=== PATIENT | female | born 1940 | race Caucasian/White ===

== ENCOUNTER → 2016-09-11 | Outpatient (CLI) | payer MEDICARE, OTHER ==
[~2016-09-11] MED LIST: ALBUTEROL SULFATE 0.083% NEB 2.5 MG/3 ML AMPUL NEB ONE
--- NOTE | 2016-09-15 13:39 | Pulmonary Function Test ---
Pulmonary Function Test Date of Procedure:: 09/11/16 INDICATION:: Dyspnea Referring Provider: Dr. Jacobs Psych Assistant: Afshan Ace STRING LASTER - Report Spirometry: FVC 1.66 L 64% postbronchodilator therapy 1.74 L 67% FEV1 1.10 L 58% postbronchodilator therapy 1.11 L 59% FEV1/FVC % 66 postbronchodilator therapy 64 predicted 81 Lung Volume: Total lung capacity 2.50 L 53% Vital capacity 1.66 L 54% Inspiratory capacity 1.11 L FRC 1.39 L 62% Residual volume 0.84 L 42% RV/TLC % 33 predicted 42 Diffusion Capactity: Diffusion capacity 9.4 41% DLCO/VA 3.48 103% Impression: The study demonstrates a moderate obstructive ventilatory defect with limited response to bronchodilator therapy. A Mild Restrictive Ventilatory Defect is also demonstrated, no hyperinflation or air trapping. There is severe decrease in diffusion capacity.
== END ==
LOC: RT 08:14
PROVIDERS: ATTEND Specialist
DX: J44.9 Chronic obstructive pulmonary disease, unspecified (principal); R06.09 Other forms of dyspnea
CPT/HCPCS: 94729; 94727; 94060; 94640; A9270

== ENCOUNTER → 2017-02-18 | Outpatient (CLI) | payer MEDICARE ==
--- NOTE | 2017-02-18 19:25 | RADIOLOGY REPORT (SQ) ---
EXAM DESCRIPTION: U/S THYROID/SFT TISS HD NECK COMPLETED DATE/TIME: 02/18/2017 5:29 pm REASON FOR STUDY: NONTOXIC SINGLE THYROID NODULE E04.1 NONTOXIC SINGLE THYROID NODULE COMPARISON: None. TECHNIQUE: Dynamic and static spicer-scale images acquired of the thyroid gland. Selected additional c olor/power Doppler images recorded. All images stored to PACS. LIMITATIONS: None. FINDINGS: RIGHT LOBE: Normal size. Homogeneous echotexture. Multiple spongiform nodules noted thro ughout. LEFT LOBE: Normal size. Homogeneous echotexture. Multiple spongiform nodules noted throughout. The largest nodule in either lobe is on the left and measures 7.0 x 5.9 x 5.4 mm. ISTHMUS: Normal size. Homogeneous echotexture. No cystic or solid masses. OTHER: No other significant finding. IMPRESSION: Multiple spongiform nodules noted throughout the thyroid the largest which measures 7 mm in size on the left. TECHNICAL DOCUMENTATION: JOB ID: [id number] [employer]- All Rights Reserved
== END ==
LOC: RAD 16:16
PROVIDERS: ATTEND Physician Assistant
DX: E04.1 Nontoxic single thyroid nodule (principal)
CPT/HCPCS: 76536

== ENCOUNTER 2017-04-06 12:36 | Emergency (ER) | payer MEDICARE ==
--- NOTE | 2017-04-06 12:53 | ER Document Report ---
ED Neck/Back Problem - General Chief Complaint: Low Back Pain Stated Complaint: BACK PAIN Time Seen by Provider: 04/06/17 12:44 Notes: The patient is a 76-year-old female, past medical history A. fib, presents with several days of intermittent right lower back pain that is worse when she stands up or moves. She has had this in the past and usually goes away without any intervention. She took some Tylenol with some relief of her symptoms. Patient has a kidney stent and is concerned that her kidneys are infected. She denies dysuria, hematuria, numbness, tingling, change in bowel or bladder, saddle anesthesia, difficulty walking, chest pain, shortness of breath or abdominal pain. TRAVEL OUTSIDE OF THE [place] IN LAST 30 DAYS: No - Related Data Allergies/Adverse Reactions: Iodinated Contrast- Oral and IV Dye [IV Dye, Iodine Containing] Adverse Reaction (Verified 04/06/17 12:49) Past Medical History - General Information source: Patient - Social History Smoking Status: Never Smoker Family History: Reviewed & Not Pertinent - Past Medical History Cardiac Medical History: Reports: Hx Hypercholesterolemia, Hx Hypertension - MEDICATED VARIES WITH DR GIOVANA Denies: Hx Heart Attack Pulmonary Medical History: Reports: Hx COPD Denies: Hx Asthma Neurological Medical History: Denies: Hx Cerebrovascular Accident, Hx Seizures Endocrine Medical History: Reports: Hx Hypothyroidism Renal/ Medical History: Denies: Hx Peritoneal Dialysis GI Medical History: Denies: Hx Hepatitis, Hx Hiatal Hernia, Hx Ulcer Musculoskeltal Medical History: Reports Hx Gout Psychiatric Medical History: Reports: Hx Depression Infectious Medical History: Denies: Hx Hepatitis Past Surgical History: Reports: Hx Hysterectomy. Denies: Hx Mastectomy, Hx Open Heart Surgery, Hx Pacemaker Review of Systems - Review of Systems Notes: REVIEW OF SYSTEMS: CONSTITUTIONAL: -fevers, -chills EENT: -eye pain, -difficulty swallowing, -nasal congestion CARDIOVASCULAR:-chest pain, -syncope. RESPIRATORY: -cough, -SOB GASTROINTESTINAL: -abdominal pain, - nausea, -vomiting, -diarrhea GENITOURINARY: -dysuria, -hematuria MUSCULOSKELETAL: +back pain, -neck pain SKIN: -rash or skin lesions. HEMATOLOGIC: -easy bruising or bleeding. LYMPHATIC: -swollen, enlarged glands. NEUROLOGICAL: -altered mental status or loss of consciousness, -headache, - neurologic symptoms PSYCHIATRIC: -anxiety, -depression. ALL OTHER SYSTEMS REVIEWED AND NEGATIVE. Physical Exam - Vital signs Vitals: Temp Pulse Resp BP Pulse Ox 97.4 F 63 20 149/73 H 93 04/06/17 12:41 04/06/17 12:41 04/06/17 12:41 04/06/17 12:41 04/06/17 12:41 - Notes Notes: PHYSICAL EXAMINATION: GENERAL: Well-appearing, well-nourished and in no acute distress. HEAD: Atraumatic, normocephalic. EYES: Pupils equal round and reactive to light, extraocular movements intact, sclera anicteric, conjunctiva are normal. ENT: nares patent, oropharynx clear without exudates. Moist mucous membranes. NECK: Normal range of motion, supple without lymphadenopathy LUNGS: Breath sounds clear to auscultation bilaterally and equal. No wheezes rales or rhonchi. HEART: Regular rate and rhythm without murmurs ABDOMEN: Soft, nontender, normoactive bowel sounds. No guarding, no rebound. No masses appreciated. EXTREMITIES: Normal range of motion, no pitting or edema. No cyanosis. BACK: No midline tenderness. Mild tenderness of right lower back. No CVA tenderness. NEUROLOGICAL: Cranial nerves grossly intact. Normal speech, normal gait. Normal sensory and motor exams. PSYCH: Normal mood, normal affect. SKIN: Warm, Dry, normal turgor, no rashes or lesions noted. Course - Re-evaluation Re-evalutation: Pt has reproducible right lower back pain that is worse with movement. No red flag signs for low back pain at this time. Considered AAA, but less likely at this time. UA does not show evidence of UTI or pyelonephritis. Instructed her to begin Lidoderm patches and f/u with her PMD. She says that she has CKD Stage 2, so will have her hold off on NSAIDs and ask her PMD if NSAIDs are safe. - Vital Signs Vital signs: Temp Pulse Resp BP Pulse Ox 97.4 F 63 20 149/73 H 93 04/06/17 12:41 04/06/17 12:41 04/06/17 12:41 04/06/17 12:41 04/06/17 12:41 Discharge - Discharge Clinical Impression: Low back pain Qualifiers: Chronicity: chronic Back pain laterality: right Sciatica presence: without sciatica Qualified Code(s): M54.5 - Low back pain; G89.29 - Other chronic pain Condition: Stable Disposition: HOME, SELF-CARE Additional Instructions: LOW BACK PAIN: Three out of every four people will have an episode of disabling back pain during their lifetime. Most commonly the pain is due to straining of the muscles and ligaments in the low back. Usual treatment includes: (1) Rest on a firm surface. Avoid lying on your stomach. (2) Ice pack the painful area. After a few days, gentle heat may be used intermittently to relax the area, or ice packs can be continued. (3) Medication may be needed -- muscle relaxers and antiinflammatory medicines are commonly used. (4) As the back improves, exercises are prescribed to strengthen the back and abdominal muscles. Your doctor will advise you on the proper care for your back at each stage in your recovery. You may be better in a few days -- or healing may take several weeks. If new symptoms of a "herniated disc" (radiation of pain, numbness, or tingling down the back of the leg or weakness in the leg) occur, you should be re-examined. Further testing may be necessary. ICE PACKS: Apply ice packs frequently against the painful area. Many different schedules are recommended, such as "20 minutes on, 20 minutes off" or "one hour ice, two hours rest." If you need to work, you may need to go longer between ice treatments. You should plan to have the area ice packed AT LEAST one fourth of the time. The ice should be applied over the wrap, tape, or splint, or over a layer of cloth -- not directly against the skin. Some ice bags have a built-in cloth and can be put directly on the skin. WARM PACKS: After approximately two days, apply gentle heat (such as a heating pad or hot water bottle) for about 20 to 30 minutes about every two hours -- at least four times daily. Warmth and elevation will help you make a more rapid recovery , and will ease the pain considerably. Do not use HOT heat, and never apply heat for longer than 30 minutes. The continuous heat can invisibly damage skin and muscles -- even when no burn is seen on the surface. Damaged muscles can make you MORE sore. FOLLOW-UP CARE: If you have been referred to a physician for follow-up care, call the physician s office for an appointment as you were instructed or within the next two days. If you experience worsening or a significant change in your symptoms, notify the physician immediately or return to the Emergency Department at any time for re-evaluation. Prescriptions: Lidocaine [Lidoderm 5% (700 mg) Transdermal Patch] 1 patch TP DAILY #30 adh..patch Forms: Elevated Blood Pressure
[2017-04-06 13:21] LABS: APPEARANCE,URINE CLEAR; BILIRUBIN,URINE NEGATIVE (NEGATIVE); GLUCOSE, URINE NEGATIVE (NEGATIVE); KETONES,URINE NEGATIVE (NEGATIVE); LEUKOCYTE ESTERASE,URINE NEGATIVE (NEGATIVE); NITRITE,URINE NEGATIVE (NEGATIVE); PROTEIN,URINE NEGATIVE (NEGATIVE); URINE SPECIFIC GRAVITY 1.003; UROBILINOGEN,URINE NEGATIVE mg/dL (<2.0)
[2017-04-06 13:35] VITALS: BP 146/78
== END 2017-04-06 13:35 | disposition home or self-care (01) ==
LOC: ER 12:36
DX: M54.5 Low back pain (principal); G89.29 Other chronic pain; I12.9 Hypertensive chronic kidney disease with stage 1 through stage 4 chronic kidney disease, or unspecified chronic kidney disease; N18.2 Chronic kidney disease, stage 2 (mild); J44.9 Chronic obstructive pulmonary disease, unspecified; Z91.041 Radiographic dye allergy status
CPT/HCPCS: 81001; 99283

== ENCOUNTER 2017-06-13 17:51 | Emergency (ER) | payer MEDICARE ==
[2017-06-13 18:10] VITALS: BP 127/75
[2017-06-13] MEDS ORDERED: DEXAMETHASONE SOD PHOS INJ 10 MG/1 ML VIAL IM ONE (18:32)
[2017-06-13] MEDS ORDERED: LIDOCAINE 5% (700 MG) TRANSDERMAL ADH..PATCH TP ONE (18:32)
--- NOTE | 2017-06-13 18:39 | ER Document Report ---
HPI - HPI Pain Level: 4 Notes: Patient is a 76-year-old female with a history of gout, CKD, COPD, chronic back pain, who presents the ED complaining of left buttock pain that radiates around the left lateral leg into her knee. Patient states that this pain started over the last day or 2. Patient denies any injury. Patient states that after a warm shower her pain does improve, but returns after using it again. Patient states that she is still able to ambulate, but does limp. Patient has not noticed any bruising or swelling nor any redness. PCM is Dr. Brown. Denies any headache, fever, URI, sore throat, chest pain, palpitations, syncope, cough , shortness of breath, wheeze, dyspnea, abdominal pain, nausea/vomiting/diarrhea , urinary retention, dysuria, hematuria, loss of control of bowel or bladder, numbness/tingling, saddle anesthesia, muscle paralysis/weakness, or rash. Patient denies any history of diabetes, back injections, or surgeries to her lower back. Patient denies any recent bacterial infection. - ROS Notes: REVIEW OF SYSTEMS: CONSTITUTIONAL : Denies fever, chills, or sweats. Denies recent illness. EENT: Denies eye, ear, throat, or mouth pain or symptoms. Denies nasal or sinus congestion or discharge. Denies throat, tongue, or mouth swelling or difficulty swallowing. CARDIOVASCULAR: Denies chest pain. Denies palpitations or racing or irregular heart beat. Denies ankle edema. RESPIRATORY: Denies cough, cold, or chest congestion. Denies shortness of breath, difficulty breathing, or wheezing. GASTROINTESTINAL: Denies abdominal pain or distention. Denies nausea, vomiting , or diarrhea. Denies blood in vomitus, stools, or per rectum. Denies black, tarry stools. Denies constipation. GENITOURINARY: Denies difficulty urinating, painful urination, burning, frequency, blood in urine, or discharge. MUSCULOSKELETAL: see hpi SKIN: Denies rash, lesions or sores. NEUROLOGICAL: Denies confusion or altered mental status. Denies passing out or loss of consciousness. Denies dizziness or lightheadedness. Denies headache. Denies weakness or paralysis or loss of use of either side. Denies problems with gait or speech. Denies sensory loss, numbness, or tingling. ALL OTHER SYSTEMS REVIEWED AND NEGATIVE. Dictation was performed using [employer] voice recognition software - REPRODUCTIVE Reproductive: DENIES: : - DERM Skin Color: Normal Past Medical History - Social History Smoking Status: Never Smoker Family History: Reviewed & Not Pertinent Patient has suicidal ideation: No Patient has homicidal ideation: No - Past Medical History Cardiac Medical History: Reports: Hx Hypercholesterolemia, Hx Hypertension - MEDICATED VARIES WITH DR VISITS Denies: Hx Heart Attack Pulmonary Medical History: Reports: Hx COPD Denies: Hx Asthma Neurological Medical History: Denies: Hx Cerebrovascular Accident, Hx Seizures Endocrine Medical History: Reports: Hx Hypothyroidism Renal/ Medical History: Denies: Hx Peritoneal Dialysis GI Medical History: Denies: Hx Hepatitis, Hx Hiatal Hernia, Hx Ulcer Musculoskeltal Medical History: Reports Hx Gout Psychiatric Medical History: Reports: Hx Depression Infectious Medical History: Denies: Hx Hepatitis Past Surgical History: Reports: Hx Hysterectomy. Denies: Hx Mastectomy, Hx Open Heart Surgery, Hx Pacemaker Vertical Provider Document - CONSTITUTIONAL Agree With Documented VS: Yes Notes: PHYSICAL EXAMINATION: GENERAL: Well-appearing, well-nourished and in no acute distress. LUNGS: Breath sounds clear to auscultation bilaterally and equal. No wheezes rales or rhonchi. HEART: Regular rate and rhythm without murmurs, rubs, gallops. ABDOMEN: Soft, nontender, nondistended abdomen. No guarding, no rebound. No masses appreciated. Normal bowel sounds present. No CVA tenderness bilaterally. No pulsatile mass. Musculoskeletal: LE's b/l: FROM to passive/active. Strength 5+/5. No focal deficits. N/V intact distal. Lt leg: No palpable tenderness to the hip, leg, knee. Ella neg. Pulses intact. No erythema, ecchymosis, warmth, or swelling. No pain or crepitus with ROM at the hip/knee. Back: FROM to passive/active. Strength 5+/5. No vertebral point tenderness or step-offs. No ecchymosis, abrasion, laceration, erythema, warmth, or deformity. + tenderness to the left SI jt (tenderness elicited corresponds to pain described). Extremities: No cyanosis, clubbing, or edema b/l. Peripheral pulses 2+. Capillary refill less than 3 seconds. NEUROLOGICAL: Normal speech, ataxic gait. Normal sensory, motor exams PSYCH: Normal mood, normal affect. SKIN: Warm, Dry, normal turgor, no rashes or lesions noted. - INFECTION CONTROL TRAVEL OUTSIDE OF THE [place] IN LAST 30 DAYS: No - RESPIRATORY O2 Sat by Pulse Oximetry: 97 Course - Re-evaluation Re-evalutation: 06/13/17 18:41 Patient is an afebrile, well-hydrated, 76-year-old female who presents the ED with left sacroiliitis. Vitals are stable. PE is otherwise unremarkable for any focal neurological deficits, neurovascular compromise, obvious tendon/ ligament rupture, obvious fracture or dislocation. No imaging warranted based on H&P today. Patient does have stage III chronic kidney disease so I will avoid NSAIDs at this time. Decadron 10 mg given IM along with a Lidoderm patch being placed. Exercises reviewed. Conservative measures for symptoms otherwise. Recheck with your PCM in 3-5 days. Strongly recommend consult with physical therapy. Consult with orthopedics if needed. Return to the ED with any worsening/concerning symptoms otherwise as reviewed in discharge. Patient is in agreement. - Vital Signs Vital signs: Temp Pulse Resp BP Pulse Ox 98.5 F 65 16 127/75 H 97 06/13/17 18:08 06/13/17 18:08 06/13/17 18:08 06/13/17 18:08 06/13/17 18:08 Discharge - Discharge Clinical Impression: Inflammation of left sacroiliac joint Condition: Stable Disposition: HOME, SELF-CARE Instructions: Ice Massage ([facility]), Ice Packs ([facility]), Warm Packs ([facility]) Additional Instructions: Rest, Ice Tylenol/ibuprofen as needed Light stretches daily Strength exercises as able Moist heat and massage may help F/u with your PCP in 3-5days for a recheck, recommend physical therapy* Consider consult(s) with Orthopedics/physical therapy for ongoing/worsening symptoms Return to the ED with any worsening symptoms and/or development of fever, headache, chest pain, palpitations, syncope, shortness of breath, trouble breathing, abdominal pain, n/v/d, muscle weakness/paralysis, numbness/tingling, swelling, redness, or other worsening symptoms that are concerning to you. Forms: Elevated Blood Pressure Referrals: [facility] [Provider Group] - Follow up as needed ANGELES BROWN MD [ACTIVE STAFF] - Follow up in 3-5 days
== END 2017-06-13 19:01 | disposition home or self-care (01) ==
LOC: ER 17:51
DX: M46.1 Sacroiliitis, not elsewhere classified (principal); J44.9 Chronic obstructive pulmonary disease, unspecified; I12.9 Hypertensive chronic kidney disease with stage 1 through stage 4 chronic kidney disease, or unspecified chronic kidney disease; N18.3 Chronic kidney disease, stage 3 (moderate)
CPT/HCPCS: 99283; 96372; J1100

== ENCOUNTER → 2017-10-06 | Outpatient (CLI) | payer MEDICARE, OTHER ==
--- NOTE | 2017-10-08 12:46 | XCELERA REPORT ---
[address] [address] Transthoracic Echocardiogram Report Name: RANJAN ARMANDO Age: 77 yrs Gender: Female : 1940 Patient Status: Outpatient Patient Location: Study Date: 10/06/2017 11:17 AM Height: 64 in Weight: 216 lb BSA: 2.0 m2 Procedure: A complete two-dimensional transthoracic echocardiogram was performed (2D, M-mode, spectral and color flow Doppler). The study was technically adequate with some images being suboptimal in quality. Reason For Study: AORTIC STENOSIS Ordering Physician: DEANGELO OSWALD Performed By: Neena Dowell Interpretation Summary The left ventricular ejection fraction is normal. Doppler measurements suggest pseudonormalized left ventricular relaxation, which is associated with grade II/IV or mild to moderate diastolic dysfunction There is borderline concentric left ventricular hypertrophy. The left ventricle is grossly normal size. Wall motion cannot be accurately commented on, but no definite regional wall motion abnormalities noted. The right ventricle is mild to moderately dilated. The right atrium is borderline dilated. Borderline left atrial enlargement. There is a mild amount of mitral regurgitation There is no mitral valve stenosis. There is a mild amount of aortic regurgitation There is no aortic valve stenosis No tricuspid regurgitation. There is no tricuspid stenosis. The aortic root is not well visualized but is probably normal size. The inferior vena cava appeared normal and decreased > 50% with respiration (RAP 5-10 mmHg) There is no pericardial effusion. MMode/2D Measurements & Calculations RVDd: 3.2 cm LVIDd: 4.6 cm FS: 29.1 % Ao root diam: 3.1 cm IVSd: 1.1 cm LVIDs: 3.3 cm EDV(Teich): 97.0 ml LVPWd: 1.0 cm ESV(Teich): 42.7 ml Ao root area: 7.8 cm2 EF(Teich): 56.0 % LA dimension: 3.3 cm Doppler Measurements & Calculations MV E max michelle: MV P1/2t max michelle: Ao V2 max: AI max michelle: 133.3 cm/sec 133.3 cm/sec 132.3 cm/sec 411.0 cm/sec MV A max michelle: MV P1/2t: 52.8 msec Ao max PG: AI max P.4 cm/sec 7.0 mmHg 67.6 mmHg MV E/A: 1.1 MVA(P1/2t): 4.2 cm2 AI dec slope: MV dec slope: 739.4 cm/sec2 170.2 cm/sec2 AI P1/2t: 707.1 msec LV V1 max PG: PA V2 max: PI end-d michelle: 1.8 mmHg 73.5 cm/sec 101.8 cm/sec LV V1 max: PA max P.2 mmHg 66.6 cm/sec Left Ventricle The left ventricle is grossly normal size. There is borderline concentric left ventricular hypertrophy. The left ventricular ejection fraction is normal. Doppler measurements suggest pseudonormalized left ventricular relaxation, which is associated with grade II/IV or mild to moderate diastolic dysfunction. Wall motion cannot be accurately commented on, but no definite regional wall motion abnormalities noted. Right Ventricle The right ventricle is mild to moderately dilated. The right ventricular systolic function is normal. Atria The right atrium is borderline dilated. Borderline left atrial enlargement. Interarterial septum not well visualized and not well dopplered. Cannot comment on ASD/PFO presence. Mitral Valve The mitral valve is grossly normal. There is no mitral valve stenosis. There is a mild amount of mitral regurgitation. Aortic Valve The aortic valve opens well. There is no aortic valve stenosis. There is a mild amount of aortic regurgitation. Tricuspid Valve The tricuspid valve is not well visualized, but is grossly normal. There is no tricuspid stenosis. No tricuspid regurgitation. Pulmonic Valve The pulmonic valve is not well visualized. Great Vessels The aortic root is not well visualized but is probably normal size. The inferior vena cava appeared normal and decreased > 50% with respiration (RAP 5-10 mmHg). Effusions There is no pericardial effusion. : DEANGELO OSWALD > Colby Cam
== END ==
LOC: SP 10:23
PROVIDERS: ATTEND Specialist
DX: I35.0 Nonrheumatic aortic (valve) stenosis (principal)
CPT/HCPCS: 93306

== ENCOUNTER → 2018-03-10 | Outpatient (CLI) | payer MEDICARE, OTHER ==
--- NOTE | 2018-03-10 11:54 | RADIOLOGY REPORT (SQ) ---
EXAM DESCRIPTION: U/S THYROID/SFT TISS HD NECK COMPLETED DATE/TIME: 03/10/2018 9:26 am REASON FOR STUDY: THYROID NODULE E04.1 NONTOXIC SINGLE THYROID NODULE COMPARISON: Thyroid ultrasound 02/18/2017 TECHNIQUE: Dynamic and static spicer-scale images acquired of the thyroid gland. Selected additional c olor/power Doppler images recorded. All images stored to PACS. LIMITATIONS: None. FINDINGS: RIGHT LOBE: Right lobe thyroid is 4.3 x 1.7 x 1.6 cm in size. Homogeneous echotexture. M ultiple colloid cysts are present, the largest is 11 mm in diameter in the posterior right midpole gl and. This is similar compared to prior study from 2017. LEFT LOBE: Left lobe thyroid is 4.0 x 1.5 x 1.6 cm in size Homogeneous echotexture. Multiple colloi d cysts are present, the largest is 7 mm in diameter left lobe thyroid. This is similar compared to prior study from 2017. ISTHMUS: Normal thickness, 7 mm. Homogeneous echotexture. Benign colloid cyst 7 mm in diameter, unc hanged. OTHER: No other significant finding. IMPRESSION: Normal size thyroid gland with multiple small colloid cysts, similar compared to exam TECHNICAL DOCUMENTATION: JOB ID: [id number] [employer]- All Rights Reserved Reading location - IP/workstation name: [email or web address]
== END ==
LOC: RAD 08:42
PROVIDERS: ATTEND Physician Assistant
DX: E04.1 Nontoxic single thyroid nodule (principal)
CPT/HCPCS: 76536

== ENCOUNTER → 2018-03-31 | Outpatient (CLI) | payer MEDICARE, OTHER | LOC: RT 09:01 | PROVIDERS: ATTEND Specialist | DX: I35.1 Nonrheumatic aortic (valve) insufficiency (principal); I34.0 Nonrheumatic mitral (valve) insufficiency; I48.0 Paroxysmal atrial fibrillation; I12.9 Hypertensive chronic kidney disease with stage 1 through stage 4 chronic kidney disease, or unspecified chronic kidney disease; N18.3 Chronic kidney disease, stage 3 (moderate); E78.5 Hyperlipidemia, unspecified; E03.9 Hypothyroidism, unspecified; Z79.899 Other long term (current) drug therapy; E66.9 Obesity, unspecified; J44.9 Chronic obstructive pulmonary disease, unspecified | CPT/HCPCS: 94729; 94727; 94060; A9270 ==

== ENCOUNTER 2018-09-25 19:48 | Emergency (ER) | payer MEDICARE, OTHER ==
[2018-09-25] MEDS ORDERED: NORMAL SALINE 1000 ML 1,000 ML IV ONE (20:41)
--- NOTE | 2018-09-25 20:41 | ER Document Report ---
ED Medical Screen (RME) - General Chief Complaint: Abdominal Pain >50 Stated Complaint: UPPER ABDOMINAL PAIN Time Seen by Provider: 09/25/18 20:37 Primary Care Provider: CHRISTINE NGUYEN PA [Primary Care Provider] - Follow up as needed Notes: Patient is a 78-year-old female that presents to the emergency department for chief complaint of nausea, vomiting and epigastric pain. She is also reported having some shortness of breath. ROS: Other than noted above, the 12 point review of systems was reviewed with the patient and were negative, all pertinent findings are included in the HPI. PHYSICAL EXAMINATION: Vital signs reviewed. GENERAL: Elderly female HEAD: Atraumatic, normocephalic. EYES: Pupils equal round extraocular movements intact, conjunctiva are normal. ENT: Nares patent NECK: Normal range of motion CV: Heart regular rate and rhythm LUNGS: No respiratory distress Musculoskeletal: Normal range of motion NEUROLOGICAL: Normal speech PSYCH: Normal mood, normal affect. MDM: Patient seen and examined for rapid initial assessment. Vital signs reviewed. A comprehensive ED assessment and evaluation of the patient, analysis of test results and completion of the medical decision making process will be conducted by additional ED providers. *Note is created using voice recognition software and may contain spelling, syntax or grammatical errors. TRAVEL OUTSIDE OF THE [place] IN LAST 30 DAYS: No - Related Data Allergies/Adverse Reactions: Iodinated Contrast- Oral and IV Dye [IV Dye, Iodine Containing] Adverse Reaction (Verified 06/13/17 18:08) Past Medical History - Past Medical History Cardiac Medical History: Reports: Hx Hypercholesterolemia, Hx Hypertension - MEDICATED VARIES WITH DR GIOVANA Denies: Hx Heart Attack Pulmonary Medical History: Reports: Hx COPD Denies: Hx Asthma Neurological Medical History: Denies: Hx Cerebrovascular Accident, Hx Seizures Endocrine Medical History: Reports: Hx Hypothyroidism Renal/ Medical History: Denies: Hx Peritoneal Dialysis GI Medical History: Denies: Hx Hepatitis, Hx Hiatal Hernia, Hx Ulcer Musculoskeltal Medical History: Reports Hx Gout Psychiatric Medical History: Reports: Hx Depression Infectious Medical History: Denies: Hx Hepatitis Past Surgical History: Reports: Hx Hysterectomy. Denies: Hx Mastectomy, Hx Open Heart Surgery, Hx Pacemaker Physical Exam - Vital signs Vitals: Temp Pulse Resp BP Pulse Ox 99.9 F 95 20 145/65 H 87 L 09/25/18 20:25 09/25/18 20:25 09/25/18 20:25 09/25/18 20:25 09/25/18 20:25 Course - Vital Signs Vital signs: Temp Pulse Resp BP Pulse Ox 99.9 F 95 20 145/65 H 87 L 09/25/18 20:25 09/25/18 20:25 09/25/18 20:25 09/25/18 20:25 09/25/18 20:25 Doctor's Discharge - Discharge Referrals: CHRISTINE NGUYEN PA [Primary Care Provider] - Follow up as needed
[2018-09-25] MEDS ORDERED: ONDANSETRON HCL INJ/PF 4 MG/2 ML SDV IV ONE (20:42)
[2018-09-25] MEDS ORDERED: PANTOPRAZOLE SODIUM 40 MG VIAL IV ONE (20:42)
--- NOTE | 2018-09-25 21:22 | ER Document Report ---
ED General - General Chief Complaint: Abdominal Pain >50 Stated Complaint: UPPER ABDOMINAL PAIN Time Seen by Provider: 09/25/18 20:37 Primary Care Provider: CHRISTINE NGUYEN PA [Primary Care Provider] - Follow up as needed Notes: Patient is an 78-year-old female that comes to the emergency department for chief complaint of nausea, vomiting, and pain in her upper abdomen. Intermittently she has had pain that radiated from the abdomen up into her chest. She states she is also having some vague shortness of breath. She vomited 4 times today. She states that when she eats she lasts about 30 minutes or more and then vomits. She denies diarrhea, flank pain, fever. Past medical history includes COPD, chronic kidney disease, hysterectomy, and a stent in her kidney. She states she has also had reflux intermittently, not treated for this. TRAVEL OUTSIDE OF THE [place] IN LAST 30 DAYS: No - Related Data Allergies/Adverse Reactions: Iodinated Contrast- Oral and IV Dye [IV Dye, Iodine Containing] Adverse Reaction (Verified 06/13/17 18:08) Past Medical History - General Information source: Patient, Relative - Social History Smoking Status: Never Smoker Chew tobacco use (# tins/day): No Frequency of alcohol use: None Drug Abuse: None Lives with: Family Family History: Reviewed & Not Pertinent Patient has suicidal ideation: No Patient has homicidal ideation: No - Past Medical History Cardiac Medical History: Reports: Hx Hypercholesterolemia, Hx Hypertension - MEDICATED VARIES WITH DR GIOVANA Denies: Hx Heart Attack Pulmonary Medical History: Reports: Hx COPD Denies: Hx Asthma Neurological Medical History: Denies: Hx Cerebrovascular Accident, Hx Seizures Endocrine Medical History: Reports: Hx Hypothyroidism Renal/ Medical History: Denies: Hx Peritoneal Dialysis GI Medical History: Denies: Hx Hepatitis, Hx Hiatal Hernia, Hx Ulcer Musculoskeletal Medical History: Reports Hx Gout Psychiatric Medical History: Reports: Hx Depression Infectious Medical History: Denies: Hx Hepatitis Past Surgical History: Reports: Hx Hysterectomy. Denies: Hx Mastectomy, Hx Open Heart Surgery, Hx Pacemaker - Immunizations Immunizations up to date: Yes Hx Diphtheria, Pertussis, Tetanus Vaccination: Yes Review of Systems - Review of Systems Constitutional: No symptoms reported EENT: No symptoms reported Cardiovascular: No symptoms reported Respiratory: No symptoms reported Gastrointestinal: See HPI Genitourinary: No symptoms reported Female Genitourinary: No symptoms reported Musculoskeletal: No symptoms reported Skin: No symptoms reported Hematologic/Lymphatic: No symptoms reported Neurological/Psychological: No symptoms reported Physical Exam - Vital signs Vitals: Temp Pulse Resp BP Pulse Ox 99.9 F 95 20 145/65 H 87 L 09/25/18 20:25 09/25/18 20:25 09/25/18 20:25 09/25/18 20:25 09/25/18 20:25 - Notes Notes: GENERAL: Alert, interacts well. No acute distress. HEAD: Normocephalic, atraumatic. EYES: Pupils equal, round, and reactive to light. Extraocular movements intact. ENT: Oral mucosa moist, tongue midline. Oropharynx unremarkable. Airway patent. Nares patent, no nasal septal hematoma, TM's intact. NECK: Full range of motion. Supple. Trachea midline. LUNGS: Clear to auscultation bilaterally, no wheezes, rales, or rhonchi. No respiratory distress. HEART: Regular rate, normal rhythm, loud systolic murmur heard throughout ABDOMEN: Tender in the epigastric area and mildly in the left upper quadrant, remaining abdomen is benign. No distention or rigidity. GENITOURINARY: Deferred EXTREMITIES: Moves all 4 extremities spontaneously. No edema, normal radial and dorsalis pedis pulses bilaterally. No cyanosis. BACK: no cervical, thoracic, lumbar midline tenderness. No saddle anesthesia, normal distal neurovascular exam. NEUROLOGICAL: Alert and oriented x3. Normal speech. [cranial nerves II through XII grossly intact]. PSYCH: Normal affect, normal mood. SKIN: Warm, dry, normal turgor. No rashes or lesions noted. Course - Re-evaluation Re-evalutation: EKG sinus rhythm at a rate of 101 with no T wave inversions or ST segment changes in consecutive leads. Chest x-ray is unremarkable. On my exam patient is only exhibiting epigastric pain, she does have pain on exam but this is mild, this is mainly in the epigastric area and slightly in the left upper quadrant, right upper quadrant is unremarkable. Lower abdomen is unremarkable. CBC unremarkable, chemistry unremarkable, lipase unremarkable. Cardiac enzymes indeterminate. This was cycled and did not significantly increase. On reeval uation patient states her symptoms are completely gone. She is asking to leave. She has received Protonix and Zofran. I discussed right upper quadrant ultrasound, CAT scan, but patient and daughter declined. Patient was given p.o. medication and fluids, she tolerated this without any difficulties. Symptoms did not return. Based on her location of pain (epigastric), symptoms resolving with Protonix, Zofran, Carafate, clinical picture is most consistent with upper gastrointestinal inflammation. I did discuss this with them in detail, I discussed strict return precautions and close follow-up. They state understanding and agreement. - Vital Signs Vital signs: Temp Pulse Resp BP Pulse Ox 99.5 F 95 15 98/53 L 95 09/26/18 01:38 09/25/18 20:25 09/26/18 01:37 09/26/18 01:38 09/26/18 01:37 - Laboratory Result Diagrams: 09/25/18 21:04 09/25/18 21:04 Laboratory results interpreted by me: 09/25/18 09/25/18 09/26/18 21:04 21:04 00:00 Hgb 15.7 H RDW 14.2 H Seg Neuts % (Manual) 92 H Lymphocytes % (Manual) 4 L Abs Lymphs (Manual) 0.3 L Chloride 97 L BUN 23 H Est GFR ( Amer) 51 L Est GFR (Non-Af Amer) 42 L Glucose 194 H AST 40 H Urine Protein 30 H Discharge - Discharge Clinical Impression: Epigastric pain Vomiting Qualifiers: Vomiting type: unspecified Vomiting Intractability: non-intractable Nausea presence: with nausea Qualified Code(s): R11.2 - Nausea with vomiting, unspecif ied Condition: Stable Disposition: HOME, SELF-CARE Additional Instructions: Your workup at this time has been reassuring. Take the medication ranitidine as prescribed for healing of the inflamed area of your upper gastrointestinal tract. Take Zofran if needed for nausea. Start with bland food, slowly progress. Follow-up within the next several days with your primary care. Return if you worsen including return vomiting, return or severe pain, fever, or any other concerning or worsening symptoms. Prescriptions: Ondansetron [Zofran Odt 4 mg Tablet] 1 - 2 tab PO Q4H PRN #15 tab.rapdis PRN Reason: For Nausea/Vomiting Ranitidine HCl [Zantac 150 mg Tablet] 150 mg PO BID #20 tablet Referrals: CHRISTINE NGUYEN PA [Primary Care Provider] - Follow up as needed
[2018-09-25 21:24] LABS: HEMATOCRIT 45.9 % (36.0-47.0); HEMOGLOBIN 15.7 g/dL (12.0-15.5); MEAN CORPUSCULAR HEMOGLOBIN 31.6 pg (27.0-33.4); MEAN CORPUSCULAR HGB CONC 34.1 g/dL (32.0-36.0); MEAN CORPUSCULAR VOLUME 93 fl (80-97); PLATELET COUNT 157 10^3/uL (150-450); RED BLOOD COUNT 4.96 10^6/uL (3.72-5.28); RED CELL DISTRIBUTION WIDTH 14.2 % (11.5-14.0); WHITE BLOOD COUNT 7.9 10^3/uL (4.0-10.5)
[2018-09-25 21:39] LABS: ALANINE AMINOTRANSFERASE 31 U/L (9-52); ALBUMIN 4.6 g/dL (3.5-5.0); ALKALINE PHOSPHATASE 103 U/L (38-126); ANION GAP 13 (5-19); ASPARTATE AMINO TRANSFERASE 40 U/L (14-36); BILIRUBIN,DIRECT 0.4 mg/dL (0.0-0.4); BILIRUBIN,TOTAL 1.3 mg/dL (0.2-1.3); BLOOD UREA NITROGEN 23 mg/dL (7-20); CALCIUM 9.5 mg/dL (8.4-10.2); CARBON DIOXIDE 30 mmol/L (22-30); CHLORIDE 97 mmol/L (98-107); GLUCOSE 194 mg/dL (75-110); LIPASE 24.2 U/L (23-300); POTASSIUM 3.9 mmol/L (3.6-5.0); SODIUM 140.1 mmol/L (137-145); TOTAL PROTEIN 7.6 g/dL (6.3-8.2)
[2018-09-25 21:46] LABS: ABSOLUTE LYMPHOCYTES# (MANUAL) 0.3 10^3/uL (0.5-4.7); ABSOLUTE MONOCYTES # (MANUAL) 0.3 10^3/uL (0.1-1.4); ABSOLUTE NEUTROPHILS# (MANUAL) 7.3 10^3/uL (1.7-8.2); BASOPHILS % (MANUAL) 0 % (0-2); EOSINOPHILS % (MANUAL) 0 % (0-6); LYMPHOCYTES % (MANUAL) 4 % (13-45); MONOCYTES % (MANUAL) 4 % (3-13); SEGMENTED NEUTROPHILS % (MAN) 92 % (42-78); TOTAL CELLS COUNTED 100
[2018-09-25 21:47] LABS: ANISOCYTOSIS 1+; PLATELET COMMENT ADEQUATE; POLYCHROMASIA 1+
--- NOTE | 2018-09-25 21:57 | EKG REPORT ---
SEVERITY:- ABNORMAL ECG - SINUS TACHYCARDIA WITH IRREGULAR RATE 84-132 BORDERLINE LEFT AXIS DEVIATION NONSPECIFIC ST-T CHANGES LATERAL LEADS : Confirmed by: Mihir Mckeon MD 25-Sep-2018 21:57:30
--- NOTE | 2018-09-25 22:01 | RADIOLOGY REPORT (SQ) ---
EXAM DESCRIPTION: XR CHEST 1 VIEW COMPLETED DATE/TME: 09/25/2018 20:41 CLINICAL HISTORY: 78 years, Female, chest pain, short of breath COMPARISON: 12/13/2015 chest NUMBER OF VIEWS: 1 TECHNIQUE: Portable chest LIMITATIONS: None. FINDINGS: Cardiomegaly with atheromatous change thoracic aorta. Osteopenia. Elevation right hemidiaphragm. Lungs are clear. No pneumothorax IMPRESSION: Cardiomegaly. Lungs are clear copyright 2011 [employer]- All Rights Reserved
[2018-09-25] MEDS ORDERED: SUCRALFATE 1 GM TABLET PO ONE (22:28)
[2018-09-26 00:51] LABS: APPEARANCE,URINE SLIGHTLY-CLOUDY; BILIRUBIN,URINE NEGATIVE (NEGATIVE); COLOR,URINE YELLOW; GLUCOSE, URINE NEGATIVE (NEGATIVE); KETONES,URINE NEGATIVE (NEGATIVE); LEUKOCYTE ESTERASE,URINE NEGATIVE (NEGATIVE); NITRITE,URINE NEGATIVE (NEGATIVE); PROTEIN,URINE 30 mg/dL (NEGATIVE); URINE SPECIFIC GRAVITY 1.023; UROBILINOGEN,URINE NEGATIVE mg/dL (<2.0)
[2018-09-26] MEDS ORDERED: ONDANSETRON ODT 4 MG TAB (6 TAB/ER DISP) PO PRN (01:09)
[2018-09-26 01:42] VITALS: BP 98/53
== END 2018-09-26 01:46 | disposition home or self-care (01) ==
LOC: ER 19:48
DX: R10.13 Epigastric pain (principal); R10.12 Left upper quadrant pain; R10.816 Epigastric abdominal tenderness; R10.812 Left upper quadrant abdominal tenderness; R11.2 Nausea with vomiting, unspecified; R07.9 Chest pain, unspecified; I10 Essential (primary) hypertension; R01.1 Cardiac murmur, unspecified; J44.9 Chronic obstructive pulmonary disease, unspecified; R06.02 Shortness of breath; Z91.041 Radiographic dye allergy status
CPT/HCPCS: 93005; 99284; 96360; 36415; 83690; 85025; 80053; 81001; 84484; 71045; 93010; A9270 ×2; J7030

== ENCOUNTER 2018-09-29 05:44 | Emergency (ER) | payer MEDICARE ==
[2018-09-29] MEDS ORDERED: ASPIRIN 81 MG TABLET, CHEWABLE PO ONE (06:09)
[2018-09-29] MEDS ORDERED: OXYCODONE-ACETAMINOPHEN 5-325 MG TABLET PO ONE (06:40)
--- NOTE | 2018-09-29 07:00 | RADIOLOGY REPORT (SQ) ---
EXAM DESCRIPTION: XR CHEST 1 VIEW COMPLETED DATE/TME: 09/29/2018 06:10 CLINICAL HISTORY: 78 years, Female, chest pain COMPARISON: 09/25/2017 NUMBER OF VIEWS: One TECHNIQUE: AP view of the chest LIMITATIONS: None. FINDINGS: Lungs are clear. The heart is mildly enlarged. There is stable elevation of the right hemidiaphragm. There is no pneumothorax or pleural effusion. IMPRESSION: No acute cardiopulmonary abnormality copyright 2010 [employer]- All Rights Reserved
[2018-09-29 07:13] VITALS: BP 146/71
--- NOTE | 2018-09-29 09:31 | EKG REPORT ---
SEVERITY:- ABNORMAL ECG - SINUS RHYTHM PROBABLE LEFT VENTRICULAR HYPERTROPHY BORDERLINE T ABNORMALITIES, INFERIOR LEADS PROLONGED QT INTERVAL : Confirmed by: Colby Cam 29-Sep-2018 09:31:04
--- NOTE | 2018-09-29 14:08 | ER Document Report ---
Entered by JUNIOR LAM SCRIBE 09/29/18 0648 Acting as scribe for:TRACI SANCHEZ MD ED General - General Chief Complaint: Shortness Of Breath Stated Complaint: CHEST PAIN Time Seen by Provider: 09/29/18 06:23 Primary Care Provider: CHRISTINE NGUYEN PA [Primary Care Provider] - Follow up as needed Mode of Arrival: Ambulatory Information source: Patient Notes: Patient is an 78 year old female with HTN, hyperlipidemia, a fib, COPD, renal artery stent, hypothyroidism presents to the emergency department complaining of chest pain, back pain and shoulder pain onset yesterday. Patient was seen in this emergency department on 09/25 complaining of epigastric abdominal pain, dry heaving and vomiting onset the day before and was discharged home with Zofran and and Zantac. She states starting yesterday she began to have anterior chest pain, bilateral shoulder pain and upper back pain. She states her pain is exacerbated with movement and deep breathing. She states she attributed this to her recent frequent vomiting but was not sure. She denies any current vomiting. TRAVEL OUTSIDE OF THE [place] IN LAST 30 DAYS: No - Related Data Allergies/Adverse Reactions: Iodinated Contrast- Oral and IV Dye [IV Dye, Iodine Containing] Adverse Reaction (Verified 06/13/17 18:08) Past Medical History - General Information source: Patient - Social History Smoking Status: Former Smoker Cigarette use (# per day): No Chew tobacco use (# tins/day): No Smoking Education Provided: No Frequency of alcohol use: None Family History: Reviewed & Not Pertinent - Past Medical History Cardiac Medical History: Reports: Hx Atrial Fibrillation, Hx Hypercholesterolemia, Hx Hypertension Pulmonary Medical History: Reports: Hx COPD Endocrine Medical History: Reports: Hx Hypothyroidism Musculoskeletal Medical History: Reports Hx Gout Psychiatric Medical History: Reports: Hx Depression Past Surgical History: Reports: Hx Hysterectomy - Immunizations Immunizations up to date: Yes Hx Diphtheria, Pertussis, Tetanus Vaccination: Yes Review of Systems - Review of Systems Constitutional: No symptoms reported EENT: No symptoms reported Cardiovascular: See HPI, Chest pain Respiratory: No symptoms reported Gastrointestinal: No symptoms reported Genitourinary: No symptoms reported Female Genitourinary: No symptoms reported Musculoskeletal: See HPI Skin: No symptoms reported Hematologic/Lymphatic: No symptoms reported Neurological/Psychological: No symptoms reported -: Yes All other systems reviewed and negative Physical Exam - Vital signs Vitals: Temp Pulse Resp BP Pulse Ox 98.8 F 77 22 H 144/67 H 88 L 09/29/18 05:53 09/29/18 05:53 09/29/18 05:53 09/29/18 05:53 09/29/18 05:53 - Notes Notes: GENERAL: Alert, interacts well. No acute distress. HEAD: Normocephalic, atraumatic. EYES: Pupils equal, round, and reactive to light. Extraocular movements intact. ENT: Oral mucosa moist, tongue midline. NECK: Full range of motion. Supple. Trachea midline. LUNGS: Oxygen saturation rate varies between 92-94% on telemetry monitor, good wave form per my interpretation. Clear to auscultation bilaterally, no wheezes, rales, or rhonchi. No respiratory distress. Tender to palpate the anterior chest wall bilaterally. HEART: Regular rate and with an occasional PAC. ABDOMEN: Soft, obese, non-tender. Non-distended. Bowel sounds present in all 4 quadrants. No guarding, rigidity, or rebound. EXTREMITIES: Moves all 4 extremities spontaneously. NEUROLOGICAL: Alert and oriented x3. Normal speech. PSYCH: Normal affect, normal mood. SKIN: Warm, dry, normal turgor. No rashes or lesions noted. BACK: Tender to palpation to the trapezius and scapular muscles. Course - Vital Signs Vital signs: Temp Pulse Resp BP Pulse Ox 98.8 F 77 26 H 146/71 H 91 L 09/29/18 05:53 09/29/18 05:53 09/29/18 07:01 09/29/18 07:01 09/29/18 07:01 Discharge - Discharge Clinical Impression: Strain of muscle and tendon of unspecified wall of thorax, initial encounter Disposition: HOME, SELF-CARE I personally performed the services described in the documentation, reviewed and edited the documentation which was dictated to the scribe in my presence, and it accurately records my words and actions.
== END 2018-09-29 07:13 | disposition home or self-care (01) ==
LOC: ER 05:44
DX: S29.019A Strain of muscle and tendon of unspecified wall of thorax, initial encounter (principal); X58.XXXA Exposure to other specified factors, initial encounter; I10 Essential (primary) hypertension; J44.9 Chronic obstructive pulmonary disease, unspecified; R07.9 Chest pain, unspecified; M54.89 Other dorsalgia; M25.512 Pain in left shoulder; M25.511 Pain in right shoulder; Z91.041 Radiographic dye allergy status; Z87.891 Personal history of nicotine dependence
CPT/HCPCS: 93005; 99285; 71045; 93010; A9270